=== PATIENT | male | born 1940 | race Caucasian/White ===

== ENCOUNTER 2016-06-01 08:08 | Emergency (ER) | payer MEDICARE ==
[2016-06-01 08:28] VITALS: BP 135/68
[2016-06-01] MEDS ORDERED: Bacitracin OINTMENT* 1 TUBE TOPICAL ONE (08:56)
--- NOTE | 2016-07-04 17:12 | UC ---
Cindy Murphy Anna, scribed for Guerita Taylor MD on 06/01/16 at 0848 . Upper Extremity HPI - HPI Summary HPI Summary: Patient is a 76 y/o male coming to [facility] [place] presenting with the sudden onset of a left elbow laceration that he acquired last night at 1900. He reports that he was adjusting his bicycle seat in his living room, when he fell down and scraped his left elbow. This morning he noticed that the laceration had bled through his dressing. His shoulders are sore from lifting weights, at baseline. Tetanus immunization less than five years ago. - History of Current Complaint Stated Complaint: ELBOW ABRASION Hx Obtained From: Patient Onset/Duration: Sudden Onset, Lasting Hours, Still Present Severity Initially: Moderate Severity Currently: Moderate - Allergies/Home Medications Allergies/Adverse Reactions: Allergies Allergy/AdvReac Type Severity Reaction Status Date / Time Codeine Allergy Intermediate Unknown Verified 01/19/15 21:37 Reaction Details Home Medications: Home Medications Lantanprost BOTH EYES DAILY 06/01/16 [History] PMH/Surg Hx/FS Hx/Imm Hx Endocrine History Of: Reports: Thyroid Disease - HYPOTHYROIDISM Denies: Diabetes Cardiovascular History Of: Reports: Cardiac Disorders - Ischemic heart disease, Hypertension Respiratory History Of: Reports: COPD Denies: Asthma, Bronchitis GI/ History Of: Denies: Ulcer Neurological History Of: Denies: Seizures, Migraine Psychological History Of: Reports: Depression - HX OF IN THE PAST - Surgical History Surgical History: Yes Surgery Procedure, Year, and Place: LEFT INGUINAL HERNIA 12/17, [facility] – [place], DR. SILVA. Goiter 1978,. Sinus Surgery 1994,. Mastoid surgery late - Family History Known Family History: Positive: Cardiac Disease, Hypertension - Social History Alcohol Use: None Substance Use Type: None Smoking Status (MU): Former Smoker Type: Cigarettes Amount Used/How Often: 1 PPD FOR 30 YRS Length of Time of Smoking/Using Tobacco: 30 YRS Have You Smoked in the Last Year: No When Did the Patient Quit Smoking/Using Tobacco: 30 YRS AGO Review of Systems Constitutional: Negative Skin: Other - laceration on elbow Eyes: Negative ENT: Negative Respiratory: Negative Cardiovascular: Negative Gastrointestinal: Negative Genitourinary: Negative Motor: Negative Neurovascular: Negative Musculoskeletal: Arthralgia - shoulders, baseline Neurological: Negative Psychological: Negative All Other Systems Reviewed And Are Negative: Yes Physical Exam Triage Information Reviewed: Yes Appearance: Well-Nourished Vital Signs: Initial Vital Signs Temp 97.7 F 06/01/16 08:24 Pulse 72 06/01/16 08:24 Resp 16 06/01/16 08:24 BP 135/68 06/01/16 08:24 Pulse Ox 98 06/01/16 08:24 Vital Signs Reviewed: Yes Eye Exam: Normal ENT Exam: Normal Neck exam: Normal - No adenopathy appreciated Respiratory Exam: Normal - Normal, no dyspnea, no tachypnea, normal respiratory rate Cardiovascular Exam: Normal - HR regular, good general skin color, good capillary refill Abdominal Exam: Normal Abdomen Description: Positive: Nontender, No Organomegaly, Soft Bowel Sounds: Positive: Present Musculoskeletal Exam: Normal Musculoskeletal: Positive: Strength Intact Neurological Exam: Normal - Nonfocal, grossly intact Skin Exam: Other - Serpentine laceration with length of 9 cm, width of 1 cm, and depth .2 cm on ulnar aspect of left elbow. It extends through full thickness dermis, with no active bleeding. Scattered ecchymosis. No point-ish tenderness. He is able to straighten and rotate without difficulty. No significant shoulder pain. Distal sensation intact. Upper Extremity Course/Dx - Course Course Of Treatment: No new problems in CCC. Considered below differential Dx s. Instructed patient on how to keep wound with appropriate level of moisture. Discussed treatment options. He is agreeable to a prescription for an ointment and an antibiotic. Discussed care of the wound for the sun. Discussed that his dressing doesnt need to be changed more than once a day, unless he is outside and getting it dirty. He can wash it between dressing changes without scrubbing directly. He should avoid hydrogren peroxide, aftershave, and other harmful chemicals. - Differential Dx/Diagnosis Provider Diagnoses: Left elbow laceration, no suture Discharge - Discharge Plan Condition: Stable Disposition: HOME Prescriptions: Mupirocin 2% OINT* [Bactroban 2 % Oint*] 1 applic TOPICAL DAILY #1 tube Patient Education Materials: Laceration Without Closure (ED) Referrals: Dajuan David MD [Primary Care Provider] - Additional Instructions: Please follow up with your primary care provider, Dr. David, per routine. Call today to confirm that your tetanus immunization status is up to date. Wound care: THIN layer of mupirocin ointment - apply once daily (ok to keep on for 2 days, if dressing doesn't soak through or become soiled). gauze bandage, roll guaze Avoid astringents. OK to shower, warm soapy water. Pat dry. Minimize direct sun exposure, indefinitely. Seek medical attention for worsening problems in the meantime. The documentation as recorded by the Cindy valencia Anna accurately reflects the service I personally performed and the decisions made by me, Guerita Taylor MD.
== END 2016-06-01 09:24 | disposition home or self-care (01) ==
LOC: UCEAST 08:08
DX: S51.012A Laceration without foreign body of left elbow, initial encounter (principal); W19.XXXA Unspecified fall, initial encounter; Y93.89 Activity, other specified; Y92.008 Other place in unspecified non-institutional (private) residence as the place of occurrence of the external cause; I25.9 Chronic ischemic heart disease, unspecified; I10 Essential (primary) hypertension; E03.9 Hypothyroidism, unspecified; J44.9 Chronic obstructive pulmonary disease, unspecified; F32.9 Major depressive disorder, single episode, unspecified; Z88.5 Allergy status to narcotic agent; Z87.891 Personal history of nicotine dependence
CPT/HCPCS: 99212; A9270-GY; G0463

== ENCOUNTER 2016-06-08 07:19 | Emergency (ER) | payer MEDICARE ==
[2016-06-08 07:39] VITALS: BP 124/73
--- NOTE | 2016-06-08 08:09 | UC ---
Lower Extremity/Ankle HPI - HPI Summary HPI Summary: GOT OUT OF VAN LAST NIGHT AND STEPPED DOWN AWKWARDLY ON LEFT FOOT. FELT A POP. THIS MORNING HAS REDNESS AND SWELLING TO LATERAL FOOT. PAIN WITH WEIGHT BEARING. - History of Current Complaint Chief Complaint: UCLowerExtremity Stated Complaint: FOOT INJURY Time Seen by Provider: 06/08/16 08:01 Hx Obtained From: Patient Onset/Duration: Sudden Onset, Lasting Hours, Still Present Severity Initially: Moderate Severity Currently: Moderate Pain Intensity: 7 Pain Scale Used: 0-10 Numeric Aggravating Factor(s): Standing, Ambulation Alleviating Factor(s): Rest Able to Bear Weight: Yes - Allergies/Home Medications Allergies/Adverse Reactions: Allergies Allergy/AdvReac Type Severity Reaction Status Date / Time Codeine Allergy Intermediate Unknown Verified 01/19/15 21:37 Reaction Details Home Medications: Home Medications Gabapentin CAP(*) [Neurontin 300 CAP(*)] 06/08/16 [History] PMH/Surg Hx/FS Hx/Imm Hx Endocrine History Of: Reports: Thyroid Disease - HYPOTHYROIDISM Denies: Diabetes Cardiovascular History Of: Reports: Cardiac Disorders, Hypertension Respiratory History Of: Reports: COPD Denies: Asthma, Bronchitis GI/ History Of: Denies: Ulcer Neurological History Of: Denies: Seizures, Migraine Psychological History Of: Reports: Depression - HX OF IN THE PAST - Surgical History Surgical History: Yes Surgery Procedure, Year, and Place: LEFT INGUINAL HERNIA 12/17, [facility] [place], DR. SILVA. Goiter 1978,. Sinus Surgery 1994,. Mastoid surgery late s - Family History Known Family History: Positive: Hypertension - Social History Alcohol Use: None Substance Use Type: None Smoking Status (MU): Former Smoker Type: Cigarettes Amount Used/How Often: 1 PPD FOR 30 YRS Length of Time of Smoking/Using Tobacco: 30 YRS Have You Smoked in the Last Year: No When Did the Patient Quit Smoking/Using Tobacco: 30 YRS AGO Review of Systems Constitutional: Negative Skin: Other - REDNESS LEFT LATERAL FOOT Respiratory: Negative Cardiovascular: Negative Gastrointestinal: Negative Musculoskeletal: Arthralgia, Edema All Other Systems Reviewed And Are Negative: Yes Physical Exam Triage Information Reviewed: Yes Appearance: Well-Appearing, No Pain Distress, Well-Nourished Vital Signs: Initial Vital Signs Temp 97.6 F 06/08/16 07:33 Pulse 85 06/08/16 07:33 Resp 16 06/08/16 07:33 BP 124/73 06/08/16 07:33 Pulse Ox 99 06/08/16 07:33 Vital Signs Reviewed: Yes Eyes: Positive: Conjunctiva Clear ENT: Positive: Hearing grossly normal Neck: Positive: Supple Respiratory: Positive: No respiratory distress, No accessory muscle use Cardiovascular: Positive: Pulses Normal Abdomen Description: Positive: Soft Musculoskeletal: Positive: ROM Intact, Edema @ - LEFT FOOT AND ANKLE, Other: - TTO LEFT FOOT LATERALLY OVER 5TH METATARSAL Neurological: Positive: Alert Psychological: Positive: Age Appropriate Behavior Skin: Positive: Other - ERYTHEMA LEFT FOOT LATERALLY. Negative: rashes Diagnostics - Radiology LEFT FOOT XRAY Xray Interpretation: No Acute Changes Radiology Interpretation Completed By: Radiologist Lower Extremity Course/Dx - Differential Dx/Diagnosis Provider Diagnoses: LEFT FOOT SPRAIN Discharge - Discharge Plan Condition: Stable Disposition: HOME Prescriptions: Ibuprofen TAB* [Motrin TAB* 600 MG] 1 tab PO Q6H PRN #30 tab PRN Reason: Pain Patient Education Materials: Foot Sprain (ED) Referrals: Dajuan David MD [Primary Care Provider] - If Needed Additional Instructions: XRAY TODAY WITHOUT FRACTURE OR DISLOCATION. REST, ICE, COMPRESS, ELEVATE. YOU SHOULD NOTICE SIGNIFICANT IMPROVEMENT OVER THE NEXT FEW DAYS. SEEK FOLLOW-UP IF YOU ARE NOT IMPROVING EXPECTED.
--- NOTE | 2016-06-08 08:34 | RAD ---
Indication: Lateral LEFT foot pain and swelling following incorrectly landing on foot. Comparison: None. Technique: 3 views LEFT foot Report: Negative for fracture or malalignment. Mild osteoarthritis at the first metatarsal phalangeal joint and interphalangeal joints. Moderate Achilles tendon insertion and small plantar fascia origin bone spurs. Vascular calcifications. Soft tissue swelling most prominent along the lateral aspect of the forefoot. IMPRESSION: Negative for fracture.
== END 2016-06-08 08:54 | disposition home or self-care (01) ==
LOC: UCEAST 07:19
DX: S93.602A Unspecified sprain of left foot, initial encounter (principal); X58.XXXA Exposure to other specified factors, initial encounter; Y93.89 Activity, other specified; Y92.9 Unspecified place or not applicable; Z88.5 Allergy status to narcotic agent; Z87.891 Personal history of nicotine dependence
CPT/HCPCS: 99212; G0463

== ENCOUNTER 2016-12-16 06:10 | Day surgery (SDC) | payer MEDICARE, MEDICAID ==
--- NOTE | 2016-12-08 13:36 | HP ---
CC: Dajuan David MD * ADMISSION HISTORY AND PHYSICAL: DATE OF ADMISSION: 12/16/16 ATTENDING SURGEON: Saw Lentz MD * (DICTATED BY SNEHAL NATION) CHIEF COMPLAINT: Right inguinal hernia. HISTORY OF PRESENT ILLNESS: This is a 76-year-old male, referred by Dr. David' s office for evaluation of a right inguinal hernia. The patient had undergone open repair of a left inguinal hernia with mesh in 2014. Beginning about a month ago, he noted a bulge in the right groin. Initially, this was without any other symptoms. However, in the past couple of weeks, he has had some intermittent pain that was self-limited and largely related to activity. He has not had any symptoms to suggest incarceration or strangulation. He was seen in the office by Dr. Lentz on 11/30/16, at which time, exam confirmed the presence of a moderately large right inguinal hernia, which was soft, reducible , and nontender. There was no evidence of recurrence on the left. Dr. Lentz discussed with him the indications for surgery, the risks, benefits, and alternatives including the option of no surgery. The patient understands the expected perioperative course and would like to proceed as scheduled with open repair right inguinal hernia with mesh. PAST MEDICAL HISTORY: Obstructive sleep apnea (using CPAP since March 2016) , hyperlipidemia, coronary artery disease (asymptomatic and previously evaluated by Dr. Holguin with regular followup; felt by Dr. Holguin to no longer need followup unless he is symptomatic), hypertension, carotid artery disease ( moderate stenosis by ultrasound, still has surveillance ultrasounds done, but has been asymptomatic), anxiety, insomnia, post-thyroidectomy hypothyroidism, glaucoma of the right eye, bilateral macular degeneration, hearing deficit on the right (uses hearing aid). PAST SURGICAL HISTORY: Sinus surgery x2, tonsillectomy remotely, thyroidectomy for benign disease remotely, open left inguinal herniorrhaphy with mesh in 2014. CURRENT MEDICATIONS: 1. Gabapentin 300 mg b.i.d. 2. Lexapro 10 mg daily. 3. Amlodipine 5 mg daily. 4. Aspirin 81 mg daily (he will continue perioperatively) 5. Levothyroxine 137 mcg daily. 6. Atorvastatin 80 mg q.p.m. 7. Metoprolol succinate extended release 25 mg b.i.d. 8. Latanoprost 0.005% 1 drop right eye each evening. 9. Colace 100 mg b.i.d. p.r.n. (not currently using). 10. Zolpidem 10 mg one-half to 1 tablet at h.s. p.r.n. (uses infrequently). 11. PreserVision 1 tablet b.i.d. 12. Loratadine 10 mg daily. 13. Clonazepam 0.5 mg one-half tablet up to t.i.d. p.r.n. anxiety (uses rarely) . DRUG ALLERGIES: None known. FAMILY HISTORY: Negative for anesthesia problems, bleeding or clotting disorders. SOCIAL HISTORY: The patient lives alone, but does have help as needed from neighbors and has a son, who lives in the area. 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 He is a former smoker, who quit 30 plus years ago. He denies use of alcohol. REVIEW OF SYSTEMS: General: No recent constitutional symptoms or acute illnesses. Weight has been stable. HEENT: He uses a partial upper denture. No recent changes in vision. Cardiovascular: He is treated for hypertension. He has a known moderate coronary artery disease and carotid artery disease, but is asymptomatic (he walks and/or rides a bike on a pretty much daily basis). Respiratory: Smoking history as noted. Sleep apnea, uses CPAP with room air. GI: No problems reported. Colonoscopy done within the past 2 to 3 years, reportedly normal with no interval changes. : No problems reported. Endocrine: He is on thyroid replacement. No diabetes. Neuro/Psych: He is treated for anxiety and insomnia. He takes gabapentin for some peripheral neuropathy in his left lower extremity (numbness). Musculoskeletal: No additions. PHYSICAL EXAMINATION GENERAL: Well-nourished, mildly obese male, in no acute distress. He appears fit and active. VITAL SIGNS: Height 5 feet 10 inches, weight 198 pounds, BMI 28. Temperature 98.8, blood pressure 128/72, pulse 72, respirations 16. HEENT: Pupils somewhat asymmetric, but reactive to light. EOMs intact. No conjunctival pallor. Oropharynx, he is edentulous, but does use a full upper denture. No intraoral lesions noted. NECK: No lymphadenopathy. There is a scar from prior thyroidectomy. LUNGS: Clear to auscultation. No rales or wheezes. HEART: Regular rate and rhythm. No murmur appreciated. ABDOMEN: Soft, nontender to palpation. No palpable masses or organomegaly other than the right groin hernia as per Dr. Lentz's exam. Well-healed left inguinal incision. GENITALIA: Not performed. RECTAL: Not performed. BACK: No spinous process or CVA tenderness. EXTREMITIES: No edema. Peripheral pulses not checked, but per the patient, they were normal by Dr. David's exam. NEUROLOGIC: Grossly intact. SKIN: Warm and dry. No suspicious rashes or lesions. IMPRESSION: Right inguinal hernia. PLAN: Open repair right inguinal hernia with mesh. SNEHAL NATION [id number]/CPS #: [id number] MTDD
[~2016-12-16 06:10] MED LIST: Buffered Lidocaine 0.9% SYRIN* 5 ML/SYR SYRINGE INTRADERM ONE
[2016-12-16] MEDS ORDERED: Buffered Lidocaine 0.9% SYRIN* 5 ML/SYR SYRINGE ONE (06:39)
[2016-12-16] MEDS ORDERED: ceFAZolin 2 GM PREMIX (*) 50 ML IVPB ONE (06:39)
[2016-12-16] MEDS ORDERED: Bupivacaine 0.5% SDV PF* 30 ML VIAL ONE (07:08)
[2016-12-16] MEDS ORDERED: Lidocaine 1% INJ* 10 MG/ML 30 ML SDV ONE (07:08)
[2016-12-16] MEDS ORDERED: Midazolam* 1 MG/ML 5 ML VIAL (5 MG) ONE (07:43)
[2016-12-16] MEDS ORDERED: fentaNYL* 50 MCG/ML 2 ML VIAL (100 MCG VIAL) ONE (07:48)
[2016-12-16] MEDS ORDERED: HYDROcodone/ACETAMIN 5-325 MG* 1 TAB PO PRN (08:06)
[2016-12-16] MEDS ORDERED: oxyCODONE/Acetamin 5/325 MG* TAB PO PRN (08:06)
[2016-12-16] MEDS ORDERED: fentaNYL* 50 MCG/ML 2 ML VIAL (100 MCG VIAL) IV PRN (08:06)
[2016-12-16] MEDS ORDERED: Ondansetron INJ* 2 MG/ML VIAL IV PRN (08:06)
[2016-12-16] MEDS ORDERED: diPHENhydraMINE IV* 50 MG/ML 1 ml VIAL (BENADRYL) IV PRN (08:06)
[2016-12-16] MEDS ORDERED: Midazolam* 1 MG/ML 2 ML VIAL (2 MG) ONE (08:15)
--- NOTE | 2016-12-16 08:38 | PN ---
Progress Note - Progress Note Date of Service: 12/16/16 Note: Brief Operative Note: Preop Dx: Right Inguinal Hernia Postop Dx: same, indirect Procedure: open repair RIH w/ mesh Anesthesia: local MAC Surgeon: Tor Asst: SNEHAL Roberts Fluids: 900 ml RL EBL: < 25 ml Specimen: none Findings: dictated
[2016-12-16 09:45] VITALS: BP 108/65
--- NOTE | 2016-12-17 00:35 | OP ---
CC: Dr. David * DATE OF OPERATION: 12/16/16 - SDS DATE OF : 38 SURGEON: Saw Lentz MD POSTAL CLERK: SNEHAL Arias ANESTHESIOLOGIST: Manuel Ritchie MD ANESTHESIA: LMAC anesthesia. PRE-OP DIAGNOSIS: Right inguinal hernia. POST-OP DIAGNOSIS: Right inguinal hernia. OPERATIVE PROCEDURE: Open repair, right inguinal hernia with mesh. DESCRIPTION OF PROCEDURE: The patient was supine on the operative table. After adequate intravenous sedation, the right groin was clipped and prepped with antiseptic and draped in a sterile fashion. Local infiltrative anesthesia was administered, approximately 2.5-inch incision was created in the right groin , carried down through the tissue layers, external oblique was opened in the direction of its fibers, cord structures were encircled with a [place] drain. Moderately large indirect space hernia was identified, it was dissected free and reduced. The direct space did not have an obvious hernia. A cone mesh plug into the internal ring, sutured at the transverse abdominis and at the inguinal ligament using 2-0 Vicryl. Second piece of mesh was placed over the inguinal floor, sutured at the tubercle. Tails were split, brought around the cord structures, tacked down laterally, it was also tacked to the inguinal ligament. External oblique was closed overtop with 2-0 Polysorb, Ar's with 3-0 Polysorb, skin with 4-0 Surgipro, followed by a sterile dressing. He tolerated the procedure well, was awakened and brought to Recovery in good condition. No complications. No drains. No pathologic specimens. Sponge and instrument counts correct. Estimated blood loss less than 20 mL. [id number]/CPS #: [id number] [facility]
== END 2016-12-16 09:58 | disposition home or self-care (01) ==
LOC: OR 06:10
PROVIDERS: ATTEND Surgery
DX: K40.90 Unilateral inguinal hernia, without obstruction or gangrene, not specified as recurrent (principal); G47.33 Obstructive sleep apnea (adult) (pediatric); E78.5 Hyperlipidemia, unspecified; I25.10 Atherosclerotic heart disease of native coronary artery without angina pectoris; I10 Essential (primary) hypertension; I65.29 Occlusion and stenosis of unspecified carotid artery; F41.9 Anxiety disorder, unspecified; G47.00 Insomnia, unspecified; E89.0 Postprocedural hypothyroidism; H40.9 Unspecified glaucoma; Z79.82 Long term (current) use of aspirin; Z87.891 Personal history of nicotine dependence
CPT/HCPCS: C1781; J0690; J2001; J2250; J3010

== ENCOUNTER 2023-02-28 14:31 | Inpatient (IN) ==
[2023-02-28] MEDS ORDERED: NS 0.9% 1000 ml BAG 1,000 ML IV ONE ×2 (15:09→17:03)
[2023-02-28 15:54] LABS: Hematocrit 41.2 % (38-53); Hemoglobin 13.9 g/dL (13.2-16.3); Mean Corpuscular Hemoglobin 34.4 pg (27-33); Mean Corpuscular Hgb Conc 33.8 g/dL (31-36); Mean Corpuscular Volume 101.6 fL (80-97); Mean Platelet Volume 7.3 fL (7.5-11.2); Platelet Count 117 10^3/uL (150-450); Red Blood Count 4.06 10^6/uL (4.06-5.63); White Blood Count 17.6 10^3/uL (3.6-10.2)
[2023-02-28] MEDS ORDERED: LORazepam 2 mg VIAL 1 ml ONE (16:29)
[2023-02-28] MEDS ORDERED: LORazepam 2 mg VIAL 1 ml IV PUSH ONE (16:30)
[2023-02-28 16:39] LABS: ALT 87 U/L (7-52); Albumin/Globulin Ratio 1.3 (1-3); Alkaline Phosphatase 69 U/L (35-149); Anion Gap 12 mmol/L (2-16); Blood Urea Nitrogen 72 mg/dL (6-24); C Reactive Protein 123.62 mg/L (<8.01); CO2 Carbon Dioxide 21 mmol/L (22-32); Calcium 8.9 mg/dL (8.6-10.3); Chloride 93 mmol/L (101-111); Globulin 3.2 g/dL (2-4); Glucose 112 mg/dL (70-100); Lipase 14 U/L (11.0-82.0); Sodium 126 mmol/L (135-145); Total Bilirubin 1.8 mg/dL (0.2-1.0); Total Protein 7.2 g/dL (6.4-8.9); eGFR CKD-EPI 17.2 (>60)
[2023-02-28 16:41] LABS: ABS Basophils 0.2 10^3/uL (0.0-0.1); ABS Lymphocytes 0.5 10^3/uL (1.0-4.8); ABS Monocytes 1.5 10^3/uL (0.0-1.1); ABS Neutrophils 15.5 10^3/uL (1.5-7.6); ABS Nucleated RBC 0.01 10^3/ul; Lymphocyte % 2.6 %
[2023-02-28 16:55] LABS: Creatine Kinase 4877 U/L (10-223)
[2023-02-28 17:08] LABS: Urine Appearance Cloudy; Urine Bilirubin Negative (Negative); Urine Blood 3+ (Negative); Urine Color Yellow; Urine Glucose Negative (Negative); Urine Ketones Negative (Negative); Urine Nitrite Negative (Negative); Urine Protein 1+(30 mg/dL) (Negative); Urine Specific Gravity 1.014 (1.002-1.030); Urine Urobilinogen Negative (Negative)
[2023-02-28] MEDS ORDERED: cefTRIAXone 1 gm/50 mL D5W 1 GM/50 ML BAG IV ONE (17:12)
[2023-02-28 17:17] LABS: Urine Bacteria Absent (Absent); Urine Red Blood Cell 3+(>10/hpf) (Absent); Urine Squamous Epithelial Cell Present (Absent); Urine White Blood Cell Trace(0-5/hpf) (Absent)
[2023-02-28 17:32] LABS: High Sens Troponin Baseline 156 pg/mL (<20)
[2023-02-28 17:50] LABS: High Sensitivity Troponin 1 Hr 177 pg/mL (<20)
[2023-02-28] MEDS ORDERED: Enoxaparin 80 MG/0.8 ML SYR SUBCUT SCH (20:00)
[2023-02-28 20:05] LABS: Potassium Redraw 4.3 mmol/L (3.5-5.0)
[2023-02-28 20:06] LABS: Magnesium 2.2 mg/dL (1.9-2.7)
[2023-02-28 20:51] LABS: Calcium 8.4 mg/dL (8.6-10.3); Creatinine, Serum 2.57 mg/dL (0.67-1.17); Magnesium 2.3 mg/dL (1.9-2.7); Potassium 4.5 mmol/L (3.5-5.0); eGFR CKD-EPI 24.1 (>60)
[2023-02-28] MEDS ORDERED: Lorazepam PYXIS KEY PRN (22:51)
[2023-02-28] MEDS ORDERED: LORazepam 2 mg VIAL 1 ml IV PUSH PRN (22:51)
[2023-03-01 04:50] LABS: Hematocrit 37.4 % (38-53); Hemoglobin 12.9 g/dL (13.2-16.3); Mean Corpuscular Hemoglobin 34.8 pg (27-33); Mean Corpuscular Hgb Conc 34.3 g/dL (31-36); Mean Corpuscular Volume 101.3 fL (80-97); Mean Platelet Volume 7.4 fL (7.5-11.2); Platelet Count 102 10^3/uL (150-450); Red Cell Distribution Width 13.4 % (12-17); White Blood Count 14.4 10^3/uL (3.6-10.2)
[2023-03-01] MEDS ORDERED: Metoprolol Tartrate 5 mg VIAL 5 ml VIAL (1 mg/ml) IV PRN (05:01)
[2023-03-01 05:21] LABS: ABS Lymphocytes 1.7 10^3/uL (1.0-4.8); ABS Monocytes 1.6 10^3/uL (0.0-1.1); ABS Nucleated RBC 0.01 10^3/ul
[2023-03-01 05:59] LABS: Calcium 8.6 mg/dL (8.6-10.3); Creatinine, Serum 0.99 mg/dL (0.67-1.17); Potassium 3.8 mmol/L (3.5-5.0); eGFR CKD-EPI 75.6 (>60)
[2023-03-01 06:00] LABS: Magnesium 2.3 mg/dL (1.9-2.7)
[2023-03-01 06:12] LABS: TSH Ultra Thyroid Stim Horm 2.03 mcIU/mL (0.34-5.60)
[2023-03-01 09:39] LABS: Urine Appearance Cloudy; Urine Bilirubin Negative (Negative); Urine Blood 3+ (Negative); Urine Color Yellow; Urine Glucose Negative (Negative); Urine Ketones Trace (Negative); Urine Nitrite Negative (Negative); Urine Protein 1+(30 mg/dL) (Negative); Urine Specific Gravity 1.021 (1.002-1.030); Urine Urobilinogen Negative (Negative)
[2023-03-01 09:59] LABS: Urine Bacteria Absent (Absent); Urine Red Blood Cell 3+(>10/hpf) (Absent); Urine White Blood Cell Trace(0-5/hpf) (Absent)
[2023-03-01] MEDS ORDERED: Enoxaparin 80 MG/0.8 ML SYR SUBCUT SCH (10:00)
[2023-03-01] MEDS ORDERED: Pantoprazole 80 mg in NS BAG 80 MG/250 ML BAG IV SCH (10:52)
[2023-03-01] MEDS: Pantoprazole VIAL 40 MG VIAL IV SCH (12:15)
[2023-03-01 12:43] LABS: PSA Screen Ultra Sensitive 2.169 ng/mL (0-4.000)
[2023-03-01 14:11] LABS: Albumin 3.5 g/dL (3.2-5.2); Albumin/Globulin Ratio 1.3 (1-3); Direct Bilirubin 0.2 mg/dL (0.03-0.18); Globulin 2.6 g/dL (2-4); Indirect Bilirubin 1.3 mg/dL (0.3-1.0); Total Bilirubin 1.5 mg/dL (0.2-1.0); Total Protein 6.1 g/dL (6.4-8.9)
[2023-03-01 16:11] LABS: Calcium 9.2 mg/dL (8.6-10.3); Creatinine, Serum 0.67 mg/dL (0.67-1.17); Potassium 5.2 mmol/L (3.5-5.0); eGFR CKD-EPI 92.6 (>60)
[2023-03-01] MEDS ORDERED: cefTRIAXone 1 gm/50 mL D5W 1 GM/50 ML BAG IV SCH ×2 (17:00)
[2023-03-01] MEDS: NS 0.45% 1000 ml BAG 1,000 ML IV SCH (18:36)
[2023-03-02] MEDS: NS 0.45% 1000 ml BAG 1,000 ML IV SCH (02:14)
[2023-03-02 06:57] LABS: ABS Lymphocytes 1.4 10^3/uL (1.0-4.8); ABS Monocytes 0.9 10^3/uL (0.0-1.1); ABS Neutrophils 5.2 10^3/uL (1.5-7.6); Eosinophil % 0.5 %; Hematocrit 34.4 % (38-53); Lymphocyte % 18.7 %; Mean Corpuscular Hemoglobin 35.4 pg (27-33); Mean Corpuscular Hgb Conc 34.9 g/dL (31-36); Mean Corpuscular Volume 101.3 fL (80-97); Mean Platelet Volume 7.6 fL (7.5-11.2); Platelet Count 88 10^3/uL (150-450); Red Blood Count 3.39 10^6/uL (4.06-5.63); Red Cell Distribution Width 13.2 % (12-17); White Blood Count 7.6 10^3/uL (3.6-10.2)
[2023-03-02 07:09] LABS: Creatinine, Serum 0.47 mg/dL (0.67-1.17); Magnesium 2.1 mg/dL (1.9-2.7); Phosphorus 1.5 mg/dL (2.5-5.0); Potassium 3.7 mmol/L (3.5-5.0); eGFR CKD-EPI 103.1 (>60)
[2023-03-02] MEDS: Potassium Chlor 10 meq TAB PO SCH (08:51)
[2023-03-02] MEDS ORDERED: Sulfur Hexaflouride MICROSPHR 25 MG VIAL ONE (10:31)
[2023-03-02] MEDS: Potassium & Sodium Phos 250 mg = 1 PACKET PO SCH ×2 (11:58→20:11)
[2023-03-02] MEDS: Pantoprazole VIAL 40 MG VIAL IV SCH (11:59)
[2023-03-02] MEDS: Potassium Phosphate IV 5 MMOL in NS 0.9% 250 ml 250 ML IVPB SCH (12:03)
[2023-03-03 06:04] LABS: ABS Eosinophils 0.1 10^3/uL (0.0-0.5); ABS Lymphocytes 1.5 10^3/uL (1.0-4.8); ABS Monocytes 0.8 10^3/uL (0.0-1.1); ABS Neutrophils 3.5 10^3/uL (1.5-7.6); Eosinophil % 1.9 %; Hematocrit 34.1 % (38-53); Hemoglobin 11.9 g/dL (13.2-16.3); Lymphocyte % 25.7 %; Mean Corpuscular Hemoglobin 35.4 pg (27-33); Mean Corpuscular Volume 101.2 fL (80-97); Mean Platelet Volume 7.2 fL (7.5-11.2); Platelet Count 115 10^3/uL (150-450); Red Blood Count 3.37 10^6/uL (4.06-5.63); Red Cell Distribution Width 13.1 % (12-17)
[2023-03-03 06:23] LABS: Creatinine, Serum 0.47 mg/dL (0.67-1.17); Phosphorus 2.1 mg/dL (2.5-5.0); Potassium 3.9 mmol/L (3.5-5.0); eGFR CKD-EPI 103.1 (>60)
[2023-03-03] MEDS: Potassium Chlor 10 meq TAB PO SCH (08:43)
[2023-03-03] MEDS: Potassium & Sodium Phos 250 mg = 1 PACKET PO SCH ×2 (08:43→20:48)
[2023-03-03] MEDS ORDERED: Pneumococcal Vac 23-Polyvalent IM ONE (09:00)
[2023-03-03] MEDS ORDERED: Influenza vaccine *QUAD* *2023-24* 0.5 ML SYRINGE IM ONE (09:00)
[2023-03-03] MEDS: Potassium Phosphate IV 5 MMOL in NS 0.9% 250 ml 250 ML IVPB SCH (10:38)
[2023-03-03] MEDS: Pantoprazole VIAL 40 MG VIAL IV SCH (13:34)
[2023-03-04] MEDS: Potassium Chlor 10 meq TAB PO SCH (09:54)
[2023-03-04] MEDS: Potassium & Sodium Phos 250 mg = 1 PACKET PO SCH (09:55)
[2023-03-04] MEDS: Potassium Phosphate IV 5 MMOL in NS 0.9% 250 ml 250 ML IVPB SCH (10:13)
[2023-03-04] MEDS: Pantoprazole VIAL 40 MG VIAL IV SCH (12:16)
[2023-03-04 14:17] VITALS: BP 104/66
== END 2023-03-04 16:02 | DRG 871 ==
LOC: EDHOLD 14:31 → ED 14:31 → SUATTDRO 17:52 → MED 03-01 08:39
PROVIDERS: ADMIT Internal Medicine; ATTEND Internal Medicine